=== PATIENT | female | born 1975 | race American Indian/Alaskan Native ===

== ENCOUNTER 2017-04-02 12:58 | Outpatient (CLI) | payer OTHER ==
--- NOTE | 2017-04-02 14:17 | Mammography Report ---
BILATERAL DIGITAL DIAGNOSTIC MAMMOGRAM with CAD and RIGHT BREAST ULTRASOUND: 04/02/17 CLINICAL: Right breast lump. COMPARISON:None FINDINGS: The breasts are heterogeneously dense, which may obscures small masses in the breasts are sufficiently dense to limit the sensitivity of mammography.A vague asymmetry in the upper-outer right breast correlates with a palpable marker. No architectural distortion or suspicious calcifications. The left breast is negative. Ultrasound of the right breast (including all four quadrants and the retroareolar area) was performed and demonstrated multiple benign cysts and no solid mass. The largest cyst is at 8:30 o'clock 4 cm from the nipple and correlates with the palpable lump. It has a few low level dependent echoes and measures 2.7 x 1.5 x 2.2 cm. Benign cyst at 9 o'clock 3 cm from the nipple measures 1.0 x 0.6 x 0.8 cm. Benign cyst at 8 o'clock 2 cm from the nipple measure 1.5 x 0.9 x 1.2 cm and 1.5 x 1.0 x 1.2 cm. A benign cyst at 2 o'clock 3 cm from the nipple measures 1.7 x 0.8 x 1.6 cm. A complex cyst at 10:30 o'clock 6 cm from nipple measures 6 x 4 x 6 mm. IMPRESSION: Benign cysts of the right breast with a dominant 2.7 cm cyst corresponding to the palpable lump. No suspicious finding. BI-RADS CATEGORY: 2 -- Benign RECOMMENDATION: Clinical follow-up and routine mammographic screening in one year. ACR BI-RADS MAMMOGRAPHIC CODES: 0 = Needs additional imaging evaluation; 1 = Negative; 2 = Benign; 3 = Probably benign; 4 = Suspicious; 5 = Malignant; 6 = Known biopsy-proven malignancy COMMENT: 1. Dense breast tissue, i.e., adenosis, fibrocystic changes, etc., may obscure an underlying neoplasm. 2. Approximately 10% of cancers are not detected with mammography. 3. A negative mammography report should not delay biopsy if a clinically suspicious mass is present. COMMENT: Patient follow-up letters are generated by our [employer] application.
== END 2017-04-02 12:59 | disposition home or self-care (01) ==
LOC: SPVWC 12:58
PROVIDERS: ATTEND Family Medicine
DX: N60.01 Solitary cyst of right breast (principal); N63 Unspecified lump in breast; N64.89 Other specified disorders of breast
CPT/HCPCS: 76641; G0204; 77066